=== PATIENT | male | born 1985 | race Caucasian/White ===

== ENCOUNTER 2022-04-13 07:50 | Day surgery (SDC) | payer MEDICARE, OTHER ==
[~2022-04-13] VITALS: Ht 160 cm; Wt 92.0 kg
[~2022-04-13 07:50] MED LIST: LORTAB 5/500 501 TAB PO; LORTAB 7.5/5001 TAB PO; NO HOME MEDICATIONS; PROTONIX 40MG T40 MG PO
[2022-04-13] MEDS ORDERED: COZAAR 50MG50 MG/TAB PO (08:25)
[2022-04-13] MEDS ORDERED: ESKALITH C450 MG/TAB PO (08:26)
[2022-04-13] MEDS ORDERED: ZOLOFT 100MG100 MG PO (08:26)
[2022-04-13] MEDS ORDERED: CLOMID50 MG (08:27)
[2022-04-13] MEDS ORDERED: TOPROL XL 50MG50 MG PO (08:28)
[2022-04-13] MEDS ORDERED: CHANTIX 0.5MG0.5 MG PO (08:28)
[2022-04-13] MEDS ORDERED: D3-5050000 IU (08:30)
[2022-04-13] MEDS ORDERED: B COMPLEX #11 TA1 PO (08:30)
[2022-04-13] MEDS ORDERED: ATIVAN 1MG T1 MG/TAB PO (08:31)
[2022-04-13 08:52] VITALS: BP 124/75; PULSE 67; TEMP 98.7
[2022-04-13] MEDS ORDERED: ROXICODONE 55 MG/TAB PO (11:11)
[2022-04-13 11:50] VITALS: BP 105/53; PULSE 81; TEMP 98.8
--- NOTE | 2022-04-13 11:50 | NUR ---
1150 PATIENT RETURNS TO ROOM 2 VIA CART. PATIENT IS ALERT AND ORIENTED. PATIENT MOTHER IS IN ROOM. 1LPM O2 VIA NC APPLIED D/T O2 SATS BEING 89. PATIENT DID RECIEVE PAIN MEDS IN PACU. PATIENT ENCOURAGED TO TAKE DEEP BREATHS IN THROUGH HIS NOSE AND OUT OF HIS MOUTH. O2 SATS RETURNED TO BASELINE, 96%. VITAL SIGNS OBTAINED. PATIENT IS NOT C/O ANY PAIN AT THIS TIME. PATIENT IS CHEWING ON ICE CHIPS, NO DIFFICULTY SWALLOWING. 1218 PATIENT REQUESTED PRN PAIN PILL. STATES PAIN IS A 6/10. VERIFIED ALLERGIES. PATIENT TOOK PRN PILL PO WITH NO DIFFICULTIES. 1220 THIS NURSE DISCUSSED DISCHARGE INSTRUCTIONS WITH PATIENT AND PATIENT MOTHER. BOTH VERBALIZED UNDERSTANDING. 1225 DISCONTINUED IV FROM RIGHT HAND WITH NO DIFFICULTIES. 1230 PATIENT DRESSES SELF. 1240 PATIENT DISCHARGES FROM UNIT VIA WHEELCHAIR.
[2022-04-13 12:05] VITALS: BP 115/49; PULSE 63
[2022-04-13 12:15] VITALS: TEMP 99
[2022-04-13 12:20] VITALS: BP 112/46; PULSE 62
== END 2022-04-13 12:40 | disposition home or self-care (01) ==
LOC: SDCO 07:50
DX: K43.0 Incisional hernia with obstruction, without gangrene (principal); I10 Essential (primary) hypertension; K21.9 Gastro-esophageal reflux disease without esophagitis; G47.33 Obstructive sleep apnea (adult) (pediatric); F17.290 Nicotine dependence, other tobacco product, uncomplicated; Z90.49 Acquired absence of other specified parts of digestive tract; Z79.899 Other long term (current) drug therapy
CPT/HCPCS: J0690; J1100; J1170; J1885; J2405; J2704; J3010; J7120